=== PATIENT | female | born 1990 | race Caucasian/White ===

== ENCOUNTER 2016-08-28 21:22 | Emergency (ER) | payer OTHER ==
[~2016-08-28] VITALS: Ht 170.2 cm; Wt 81.6 kg
[2016-08-28 21:29] VITALS: BP 129/80
[2016-08-28] MEDS ORDERED: AMOXICILLIN500 M3 PO (22:24)
--- NOTE | 2016-08-28 22:24 | ED THROAT/DENTAL COMPLAINT ---
History of Present Illness General Chief Complaint: Sore Throat, Dental Pain Stated Complaint: ?STREP Source: patient Exam Limitations: no limitations Vital Signs & Intake/Output Vital Signs & Intake/Output Vital Signs Date Time Temp Pulse Resp B/P B/P Pulse O2 O2 Flow FiO2 Mean Ox Delivery Rate 08/28 2128 96.7 79 18 129/80 99 Room Air Allergies Coded Allergies: azithromycin (From ZITHROMAX) (Intermediate, HIVES 08/28/16) oseltamivir (From TAMIFLU) (Intermediate, HIVES 08/28/16) Reconcile Medications Amoxicillin 500 MG TABLET 1 TAB PO TID pharyngitis Triage Note: PT TO TRIAGE WITH C/O SORE THROAT SINCE THIS MORNING. PT AFEBRILE IN TRIAGE, VSS. Triage Nurses Notes Reviewed? yes : No Patient currently breastfeeds: No HPI: This patient is a 25-year-old female with a past medical history including hypothyroidism who presented to the emergency department today for evaluation of sore throat since this morning. The patient reported the pain gets up to a 6 out of 10, is sharp and nonradiating. Worse with swallowing. The pain has been constant with no palliative factors. The patient denied any fevers, chills, chest pain, difficult breathing, ear pain, cough sputum production, hemoptysis, or any other associated symptoms. (MANNY CHRISTENSEN PA-C) Past History Travel History Traveled to [place] past 21 day No Medical History Any Pertinent Medical History? see below for history Endocrine: hypothyroidism Surgical History Surgical History: non-contributory Psychosocial History What is your primary language Kyrgyz Tobacco Use: Quit >30 days ago Family History Hx Contributory? No (MANNY CHRISTENSEN PA-C) Review of Systems Review of Systems Constitutional: Reports: no symptoms. EENTM: Reports: see HPI. Respiratory: Reports: no symptoms. Cardiovascular: Reports: no symptoms. GI: Reports: no symptoms. Musculoskeletal: Reports: no symptoms. Skin: Reports: no symptoms. Neurological/Psychological: Reports: no symptoms. All Other Systems: Reviewed and Negative (MANNY CHRISTENSEN PA-C) Physical Exam Physical Exam Mouth/Throat: mild pharyngeal injection with no oral pharyngeal lesions or edema. No tonsillar exudates or uvular shift. No trismus or drooling. No mandibular or maxillary edema. No dental tenderness Comments: Well-developed well-nourished person in no acute distress HEENT: Head normocephalic, moist mucous membranes Neck: Supple, no lymphadenopathy Back: Normal gait Respiratory: No respiratory distress. Speaking in full sentences Extremities: No edema, full range of motion Neuro: Alert and oriented x3 Psych: Mood affect normal, normal memory normal judgment. Skin: Warm and dry, no rash on exposed skin Core Measures ACS in differential dx? No Severe Sepsis Present: No Septic Shock Present: No (MANNY CHRISTENSEN PA-C) Progress Differential Diagnosis: Ludwigs angina, odontogenic abscess, alvin-tonsillar abscess, strep pharyngitis Plan of Care: Orders Procedure Date/time Status THROAT CULTURE W/QUICK STREP 08/28 2132 Active Departure Departure Disposition: HOME OR SELF CARE Condition: Stable Clinical Impression Primary Impression: Pharyngitis Qualifiers: Pharyngitis/tonsillitis etiology: unspecified etiology Qualified Code: J02.9 - Acute pharyngitis, unspecified Referrals: UNKNOWN (PCP/Family) Additional Instructions: take antibiotic as as prescribed and for the full duration. Be sure to stay hydrated. Rest. Please follow-up with your primary care physician. Return for any worsening symptoms or concerns. Departure Forms: Customer Survey General Discharge Information Prescriptions: Current Visit Scripts Amoxicillin 1 TAB PO TID #21 TAB (MANNY CHRISTENSEN PA-C) PA/VA UNDERWRITER Co-Sign Statement Statement: ED Attending supervision documentation- [X] I saw and evaluated the patient. I have also reviewed all the pertinent lab results and diagnostic results. I agree with the findings and the plan of care as documented in the PA's/VA UNDERWRITER's documentation. [X] I have reviewed the ED Record and agree with the PA's/VA UNDERWRITER's documentation. [] Additions or exceptions (if any) to the PAs/VA UNDERWRITER's note and plan are summarized below: [] (MERRILL MOORE,GILLIAN Craig)
== END 2016-08-28 22:33 ==
LOC: ERH 21:22
DX: J02.9 Acute pharyngitis, unspecified (principal); Z87.891 Personal history of nicotine dependence

== ENCOUNTER 2016-12-02 19:12 | Emergency (ER) | payer OTHER ==
[~2016-12-02 19:12] MED LIST: AMOXICILLIN500 M3 PO; CITALOPRAM HBR20 MG PO; FOLIC ACID1 M1 PO; LEVOTHYROXINE88 MCG PO; PROMETHAZINE HC25 M3 PO; XANAX XR1 M1 PO
--- NOTE | 2016-12-02 19:17 | ED SYNCOPE COMPLAINT ---
History of Present Illness General Chief Complaint: General Adult Stated Complaint: NEAR SYNCOPE Source: patient, family, old records Exam Limitations: no limitations Vital Signs & Intake/Output Vital Signs & Intake/Output Vital Signs Date Time Temp Pulse Resp B/P B/P Pulse O2 O2 Flow FiO2 Mean Ox Delivery Rate 12/02 2229 98.2 76 18 101/49 97 Room Air 12/02 1945 99 Nasal 2.0L Cannula 12/02 1914 96.9 88 15 139/86 98 Room Air Room Air Allergies Coded Allergies: iron (Severe, ANAPHYLAXIS FROM SOME PRESERVATIVE IN IRON IV 12/02/16) azithromycin (From ZITHROMAX) (Intermediate, HIVES 12/02/16) oseltamivir (From TAMIFLU) (Intermediate, HIVES 12/02/16) Reconcile Medications Alprazolam 1 MG TABLET 1 TAB PO BID ANXIETY (Reported) Citalopram Hydrobromide (Citalopram HBr) 20 MG TABLET 30 MG PO DAILY ANXIETY (Reported) Cyanocobalamin (Vitamin B-12) (Cyanocobalamin Injection) 1,000 MCG/ML VIAL 1 ML IM Q30D SUPPLEMENT (Reported) Levothyroxine Sodium 88 MCG TABLET 88 MCG PO D THYROID (Reported) Pantoprazole Sodium 40 MG TABLET.DR 1 TAB PO DAILY GI (Reported) Triage Nurses Notes Reviewed? yes HPI: Patient was at work when she had some onset of lower abdominal cramps. Patient then had a near syncopal episode. The cramps have resolved however she still feels very lightheaded. She denies any chest pain or palpitations. There is no difficulty breathing. The cramps started this evening and lasted approximately 5 for going away. She rates it a 10 out of 10 in the currently a 2 out of 10. There are no aggravating or mitigating factors. No radiation. Symptoms in the past ever since she's had her gastric sleeve done. Past History Travel History Traveled to [place] past 21 day No Medical History Any Pertinent Medical History? see below for history Neurological: NONE EENT: NONE Cardiovascular: NONE Respiratory: NONE Gastrointestinal: NONE Hepatic: NONE Renal: NONE Musculoskeletal: NONE Psychiatric: NONE Endocrine: hypothyroidism Blood Disorders: NONE Cancer(s): NONE Surgical History Surgical History: GASTRIC SLEEVE 2011 Psychosocial History What is your primary language Latvian Tobacco Use: Never used ETOH Use: occasional use Illicit Drug Use: denies illicit drug use Family History Hx Contributory? No Review of Systems Review of Systems Constitutional: Reports: no symptoms. EENTM: Reports: no symptoms. Respiratory: Reports: no symptoms. Cardiovascular: Reports: no symptoms. GI: Reports: see HPI, abdominal pain. Genitourinary: Reports: no symptoms. Musculoskeletal: Reports: no symptoms. Skin: Reports: no symptoms. Neurological/Psychological: Reports: no symptoms. All Other Systems: Reviewed and Negative Physical Exam Physical Exam General Appearance: well developed/nourished, alert, awake, severe distress Head: atraumatic, normal appearance Eyes: Bilateral: PERRL, EOMI. Ears, Nose, Throat: normal pharynx, normal ENT inspection, DRY MUCOSA Neck: normal inspection, supple, full range of motion Respiratory: normal breath sounds, chest non-tender, no respiratory distress, lungs clear Cardiovascular: regular rate/rhythm, normal peripheral pulses Gastrointestinal: normal bowel sounds, soft, non-tender, no organomegaly Back: normal inspection, normal range of motion Extremities: normal inspection, normal capillary refill, normal range of motion, no edema Psychiatric: awake, alert, oriented x 3 Cranial Nerves: normal hearing, normal speech, PERRL Motor/Sensory: no motor/sensory deficits Skin: diaphoresis Core Measures ACS in differential dx? No CVA/TIA Diagnosis: No Severe Sepsis Present: No Septic Shock Present: No Progress Differential Diagnosis: AMI, drug induced syncope, orthostatic syncope, pacemaker malfunction, pulmonary embolus Plan of Care: Orders Procedure Date/time Status Add-on Test (ER Only) 12/02 1928 Active MISTAKE 12/02 1928 Active D-DIMER 12/03 1919 Complete URINALYSIS 12/02 1916 Complete TROPONIN LEVEL 12/02 1916 Complete LIPASE 12/02 1916 Complete HUMAN BETA HCG SCREEN 12/02 1916 Complete COMPREHENSIVE METABOLIC PANEL 12/02 1916 Complete CBC WITHOUT DIFFERENTIAL 12/02 1916 Complete AMYLASE 12/02 1916 Complete EKG 12/02 1916 Active Laboratory Tests 12/02/166: Urine Color ORANG H, Urine Clarity HAZY H, Urine pH 5.5, Ur Specific [place] 1.020, Urine Protein 100 H, Urine Ketones TRACE H, Urine Nitrite POS H, Urine Bilirubin NEG, Urine Urobilinogen >=8.0 H, Ur Leukocyte Esterase TRACE H, Ur Microscopic SEDIMENT EXAMINED, Urine RBC RARE, Urine WBC 1-3 H, Ur Epithelial Cells PACKD H, Urine Mucus MOD H, Urine Hemoglobin NEG, Urine Glucose 100 H 12/02/16 1920: Anion Gap 12, Estimated GFR > 60, BUN/Creatinine Ratio 26.7 H, Glucose 84, Calcium 9.5, Total Bilirubin 0.6, AST 17, ALT 27, Alkaline Phosphatase 47, Troponin I < 0.01, Total Protein 7.9, Albumin 4.3, Globulin 3.6, Albumin/ Globulin Ratio 1.2, Amylase 64, Lipase 113, Total Beta HCG NEGATIVE, D-Dimer High Sensitivty 8824 H, CBC w Diff NO MAN DIFF REQ, RBC 4.68, MCV 87.0, MCH 29.0, RDW 13.7, MPV 7.6, Gran % 45.6, Lymphocytes % 46.2, Monocytes % 7.4, Eosinophils % 0.4, Basophils % 0.4, Absolute Granulocytes 2.4, Absolute Lymphocytes 2.4, Absolute Monocytes 0.4, Absolute Eosinophils 0, Absolute Basophils 0, PUBS MCHC 33.3 Diagnostic Imaging: Viewed by Me: CT Scan. Discussed w/RAD: CT Scan. Radiology Impression: PATIENT: JOANN ZUÑIGA PRESENT AGE: 26 PATIENT ACCOUNT NO: [id number] : 90 LOCATION: [facility] ORDERING PHYSICIAN: GILLIAN MOMIN MD SERVICE DATE: 12/02/16-2039 EXAM TYPE: CAT - CT ABD & PELVIS W ORAL & IV CO; CTA CHEST-PULMONARY EMBOLISM EXAMINATION: CT ANGIOGRAM CHEST CT ABDOMEN AND PELVIS WITH CONTRAST CLINICAL INFORMATION: PE. Near syncope. Intra-abdominal pathology. Abdominal cramping. Gastric sleeve in 2011 COMPARISON: Chest x-ray 04/11/2016 TECHNIQUE: Oral contrast was administered. Multiple axial images were obtained through the chest, abdomen, and pelvis after the administration of 94 mL Omnipaque 350. Coronal and sagittal reformatted images were obtained and reviewed. Oblique sagittal MIP reconstructed images through the chest were obtained under radiologist supervision, uploaded to PACS and reviewed. FINDINGS: PULMONARY ARTERIES: No central or segmental pulmonary emboli. THORACIC AORTA: No aneurysm or dissection. LUNG: No focal consolidation, nodules or masses. PLEURA: No pleural effusion or pneumothorax. MEDIASTINUM: Normal heart size. No pericardial effusion. No hilar or mediastinal lymphadenopathy. No evidence of septal bowing or right heart strain. CHEST WALL/AXILLA: No axillary or internal mammary lymphadenopathy. Bilateral breast implants. LIVER, GALLBLADDER, AND BILIARY TREE : The liver is normal in size, shape, and attenuation. No focal hepatic lesion or biliary ductal dilatation is present. Status post cholecystectomy. The common bile duct is upper limits of normal in diameter, not unexpected following cholecystectomy. PANCREAS: Normal; no mass or surrounding fluid. SPLEEN: Normal size. No focal lesion. ADRENAL GLANDS: Normal; no mass. KIDNEYS AND URETERS: The kidneys are normal in size, shape, and attenuation. No hydronephrosis, hydroureter, or calculi. GASTROINTESTINAL TRACT: There is wall thickening of the distal esophagus which can be seen in the setting of esophagitis. There are postsurgical changes in the region of the epigastrium. There are postsurgical changes along the body of the stomach consistent with prior sleeve gastrectomy oral contrast is seen within the stomach and proximal small bowel in the left abdomen. No dilated loops of small bowel are present. A few scattered colonic diverticula are present. No colonic wall thickening to suggest colitis or diverticulitis. Although the appendix is not definitely seen, there are no right lower quadrant inflammatory changes to suggest acute appendicitis. ABDOMINAL WALL: No significant hernia is appreciated. LYMPHOVASCULAR STRUCTURES: No lymphadenopathy. The aorta is unremarkable. BLADDER: No focal mass or wall thickening seen. No bladder calculi. PELVIC VISCERA: Normal CT appearance of the uterus. No adnexal mass seen. OSSEOUS STRUCTURES: No acute or suspicious osseous abnormality. IMPRESSION: No pulmonary embolus seen. Clear lungs. Dilated distal esophagus, nonspecific but suggestive of esophagitis. Postoperative changes status post sleeve gastrectomy. No evidence of bowel obstruction. Status post cholecystectomy. DICTATED BY: ELIA WOODARD MD DATE/TIME DICTATED:2202 [employer]OMEN[employer] COACH:CA DATE/TIME TRANSCRIBED:12/02/162202 CONFIDENTIAL, DO NOT COPY WITHOUT APPROPRIATE AUTHORIZATION. <Electronically signed in Other Vendor System> SIGNED BY: ELIA WOODARD MD 12/02/162227 Initial ED EKG: SR, NO ISCHEMIC CHANGES, NO INTERVAL PROLONGATION Rhythm Strip: normal sinus rhythm Comments: The diaphoresis has resolved. The pain returned in her left lower quadrant. Abdominal exam shows no rebound or guarding. Bowel sounds remain intact. Patient is feeling 100% better after IV hydration and IV Toradol. Patient and her family have been updated on lab results questions answered. Departure Departure Disposition: HOME OR SELF CARE Condition: Stable Clinical Impression Primary Impression: Near syncope Secondary Impressions: Lower abdominal pain, unspecified Referrals: UNKNOWN (PCP/Family) Additional Instructions: RETURN IF SYMPTOMS WORSEN OR FOR ANY CONCERNS Departure Forms: Customer Survey General Discharge Information
[2016-12-02 19:30] LABS: ABSOLUTE BASOPHIL COUNT 0 /CUMM (0.0-0.2); ABSOLUTE EOSINOPHIL COUNT 0 /CUMM (0.0-0.7); ABSOLUTE GRANULOCYTE CT 2.4 /CUMM (1.4-6.5); ABSOLUTE LYMPH COUNT 2.4 /CUMM (1.2-3.4); ABSOLUTE MONOCYTE COUNT 0.4 /CUMM (0.10-0.60); BASOPHIL % 0.4 % (0.0-2.0); EOSINOPHIL % 0.4 % (0-5); GRANULOCYTE % 45.6 % (42.2-75.2); HEMATOCRIT 40.7 % (37-47); MEAN CORPUSCULAR HGB CONC 33.3 G/DL (33.0-37.0); MEAN PLATELET VOLUME 7.6 FL (7.4-10.4); PLATELET COUNT 278 /CUMM (130-400); RBC DISTRIBUTION WIDTH 13.7 % (11.5-14.5); RED BLOOD CELL CT 4.68 /CUMM (4.20-5.40); WHITE BLOOD CELL COUNT 5.2 /CUMM (4.8-10.8)
[2016-12-02] MEDS ORDERED: ALPRAZOLAM1 M2 PO (20:06)
[2016-12-02] MEDS ORDERED: PANTOPRAZOLE SO40 M1 PO (20:06)
[2016-12-02] MEDS ORDERED: CYANOCOBAL1000 MCG/2 IM (20:07)
--- NOTE | 2016-12-02 22:28 | CT SCAN REPORT ---
EXAMINATION: CT ANGIOGRAM CHEST CT ABDOMEN AND PELVIS WITH CONTRAST CLINICAL INFORMATION: PE. Near syncope. Intra-abdominal pathology. Abdominal cramping. Gastric sleeve in 2011 COMPARISON: Chest x-ray 04/11/2016 TECHNIQUE: Oral contrast was administered. Multiple axial images were obtained through the chest, abdomen, and pelvis after the administration of 94 mL Omnipaque 350. Coronal and sagittal reformatted images were obtained and reviewed. Oblique sagittal MIP reconstructed images through the chest were obtained under radiologist supervision, uploaded to PACS and reviewed. FINDINGS: PULMONARY ARTERIES: No central or segmental pulmonary emboli. THORACIC AORTA: No aneurysm or dissection. LUNG: No focal consolidation, nodules or masses. PLEURA: No pleural effusion or pneumothorax. MEDIASTINUM: Normal heart size. No pericardial effusion. No hilar or mediastinal lymphadenopathy. No evidence of septal bowing or right heart strain. CHEST WALL/AXILLA: No axillary or internal mammary lymphadenopathy. Bilateral breast implants. LIVER, GALLBLADDER, AND BILIARY TREE: The liver is normal in size, shape, and attenuation. No focal hepatic lesion or biliary ductal dilatation is present. Status post cholecystectomy. The common bile duct is upper limits of normal in diameter, not unexpected following cholecystectomy. PANCREAS: Normal; no mass or surrounding fluid. SPLEEN: Normal size. No focal lesion. ADRENAL GLANDS: Normal; no mass. KIDNEYS AND URETERS: The kidneys are normal in size, shape, and attenuation. No hydronephrosis, hydroureter, or calculi. GASTROINTESTINAL TRACT: There is wall thickening of the distal esophagus which can be seen in the setting of esophagitis. There are postsurgical changes in the region of the epigastrium. There are postsurgical changes along the body of the stomach consistent with prior sleeve gastrectomy oral contrast is seen within the stomach and proximal small bowel in the left abdomen. No dilated loops of small bowel are present. A few scattered colonic diverticula are present. No colonic wall thickening to suggest colitis or diverticulitis. Although the appendix is not definitely seen, there are no right lower quadrant inflammatory changes to suggest acute appendicitis. ABDOMINAL WALL: No significant hernia is appreciated. LYMPHOVASCULAR STRUCTURES: No lymphadenopathy. The aorta is unremarkable. BLADDER: No focal mass or wall thickening seen. No bladder calculi. PELVIC VISCERA: Normal CT appearance of the uterus. No adnexal mass seen. OSSEOUS STRUCTURES: No acute or suspicious osseous abnormality. IMPRESSION: No pulmonary embolus seen. Clear lungs. Dilated distal esophagus, nonspecific but suggestive of esophagitis. Postoperative changes status post sleeve gastrectomy. No evidence of bowel obstruction. Status post cholecystectomy.
[2016-12-02 22:30] VITALS: BP 101/49
== END 2016-12-02 22:50 ==
LOC: ERH 19:12
PROVIDERS: Emergency Medicine
DX: R55 Syncope and collapse (principal); R10.30 Lower abdominal pain, unspecified; E03.9 Hypothyroidism, unspecified
CPT/HCPCS: 74177; 81001; 93005; 93010; 96374; J1885